=== PATIENT | male | born 1975 | race Caucasian/White ===

== ENCOUNTER → 2021-07-20 | Outpatient (CLI) | payer BC, OTHER ==
[~2021-07-20] VITALS: Ht 172.7 cm; Wt 90.3 kg
[~2021-07-20] MED LIST: AMIODARONE HCL400 MG PO; COZAAR 25 MG TA25 M1 PO; ELIQUIS5 MG PO; FISH OIL 1,001000 M3 PO; GINSENG100 MG PO; HYDROCHLOROTHIA25 M1 PO; KLOR-CON M2020 MEQ PO; LEXAPRO 10 MG T10 M2 PO; LUTEIN6 MG PO; NORVASC10 MG PO; SUPER THERAVIT1 EACH PO; VITAMIN C500 M2 PO; VITAMIN D3125 MC2 PO; ZINC50 MG PO
[2021-07-20 07:32] VITALS: BP 128/70
[2021-07-20 07:42] LABS: ABSOLUTE NEUTROPHILS 2.9 thou/uL (1.4-8.2); BASOPHILS 0.9 % (0.0-2.0); EOSINOPHILS 1.3 % (0.0-3.0); HEMATOCRIT 39.4 % (42.0-52.0); HEMOGLOBIN 13.5 gm/dL (14.0-18.0); MCH 32.1 pg (26.0-34.0); MCHC 34.2 g/dL (28.0-37.0); MCV 93.9 fL (80.0-100.0); MONOCYTES 9.1 % (1.0-8.0); PLATELET COUNT 186 thou/uL (150-400); POLYS 63.7 % (36.0-66.0); RDW 13.6 % (10.5-14.5); WBC 4.5 thou/uL (4.0-11.0)
[2021-07-20 07:47] LABS: APTT 24.6 Seconds (24.5-32.8); INR 0.9; PROTIME 9.9 Seconds (10.5-12.1)
[2021-07-20 07:51] LABS: CALCIUM 8.7 mg/dL (8.5-10.1); POTASSIUM 3.2 mmol/L (3.5-5.1)
[2021-07-20 07:58] LABS: ALBUMIN 3.6 g/dL (3.4-5.0); TOTAL BILIRUBIN 0.4 mg/dL (0.2-1.0); TOTAL PROTEIN 7.1 g/dL (6.4-8.2)
--- NOTE | 2021-07-27 08:33 | P ---
[facility] [place] [address] PROCEDURE REPORT Name: RAVEN SINGLETON Room #: REG CLOTILDE CondeDonny#: [id number] Admission: 07/20/21 Attend Phys: Yvan Joaquin MD Discharge: Date of : 77 Report #: [id number] THIS REPORT FOR: cc: Chad Garnett Jeffrey W. DO Couchonnal, Luis F. MD ~ DATE OF SERVICE: 07/20/2021 PREOPERATIVE DIAGNOSIS: Premature ventricular contractions. POSTOPERATIVE DIAGNOSIS: Premature ventricular contractions. HISTORY: The patient is a 45-year-old with frequent premature ventricular contractions and a nonischemic cardiomyopathy. He has been off his amiodarone for a few weeks and is here for possible EP study, possible ablation of his PVCs. DESCRIPTION OF PROCEDURE: The patient was brought to the procedure suite in a fasting and nonsedated state. He appeared to not be having very many PVCs. He was therefore given some light sedation and started on an isoproterenol drip. Isoproterenol drip was initially started at 2 mcg, increased to 5 and then 8 mcg. He had two or three different PVC morphologies that were noted during the procedure. There were some right bundle-branch block PVCs that were positive for concordance. There was another right bundle-branch block morphology PVC of different axis. He then had some left bundle-branch block PVCs, some of them which looked to be apical RV origin and then there was towards the end a few PVCs that looked to be right ventricular outflow tract in nature. However, over a period of an hour, he had a total of maybe 10-15 PVCs and there were variable morphologies. Given this fact, I decided to not have the patient undergo invasive procedure and the procedure was therefore aborted. CONCLUSIONS: Drug challenge with isoproterenol with no significant PVCs. PLAN: We will continue to hold the amiodarone and hopefully his PVC burden will increase over the next two to four weeks and then we can bring him back for repeat attempt at PVC ablation when his PVC burden is somewhat higher. <ELECTRONICALLY SIGNED> By: Yvan Joaquin MD 07/27/21 [id number] Yvan Joaquin MD /nt
== END | disposition home or self-care (01) ==
LOC: CATH 06:36
PROVIDERS: ATTEND Internal Medicine Cardiovascular Disease
DX: I49.3 Ventricular premature depolarization (principal); I42.9 Cardiomyopathy, unspecified; I10 Essential (primary) hypertension; Z98.890 Other specified postprocedural states; Z79.899 Other long term (current) drug therapy; Z20.822 Contact with and (suspected) exposure to COVID-19; Z86.718 Personal history of other venous thrombosis and embolism; Z79.01 Long term (current) use of anticoagulants; Z86.711 Personal history of pulmonary embolism
CPT/HCPCS: 62110; 62900; 70005